=== PATIENT | male | born 1975 | race Caucasian/White ===

== ENCOUNTER → 2020-11-14 13:04 | Outpatient (BNVA) | payer OTHER, SELFPAY | PROVIDERS: PCP Pediatrics; Visit Provider Internal Medicine Cardiovascular Disease | DX: Z45.018 Encounter for adjustment and management of other part of cardiac pacemaker (principal); Z01.810 Encounter for preprocedural cardiovascular examination | CPT/HCPCS: 93005; 99202 ==

== ENCOUNTER → 2021-01-11 09:09 | Outpatient (REF) | payer OTHER, SELFPAY ==
--- NOTE | 2021-01-11 09:20 | CA_ITS ---
Transthoracic Echocardiogram Patient (Last, First, Middle): William Carlson, Gender: Male Date of : 1975 Age: 45 Procedure Date: 01/11/2021 Procedure Type: Transthoracic Echocardiogram Location: OP Height: 162.56 cm Weight: 150. kg BSA: 2.42 m2 Heart Rate: bpm BP: 128 / 60 mmHg Bleach Mixer: Referring MD: Odell Fernandez MD Symptoms: Z01.810 - Encounter for preprocedural cardiovascular examination Study Quality: Technically Difficult ECG Rhythm: Sinus Conclusions: - 1. Normal LV systolic function with mild LVH with pseudonormal filling pattern 2. Cardiac valves not well visualize with within normal limits cardiac Dopplers 3. Moderately elevated right ventricular systolic pressure 4. No gross pericardial effusion Findings Procedure Information Contrast agent, definity, is being given per protocol without apparent complications. Left Ventricle The left ventricle was not well visualized. There is mildly increased left ventricular wall thickness. The visually estimated ejection fraction is between 60-65%. Spectral Doppler is indicative of a pseudonormal filling pattern. E/E prime ratio is between 8 and 15 consistent with indeterminate filling pressures. Right Ventricle The right ventricle was not well visualized. There is a pacemaker wire seen in the right ventricle. However on contrast images the RV appears to be enlarged Atria The left atrium was not well visualized. Interatrial shunt cannot be excluded. The right atrium was not well visualized. Aortic Valve The aortic valve was not well visualized. There is no aortic valve stenosis. There is no aortic valve regurgitation. Mitral Valve The mitral valve was not well visualized. There is trace mitral valve regurgitation. There is no mitral valve stenosis. Pulmonic Valve The pulmonic valve was not well visualized. Tricuspid Valve The tricuspid valve was not well visualized. There is mild tricuspid valve regurgitation. Mildly elevated right atrial pressure. Moderate pulmonary hypertension is present. Great Vessels The aorta was not well visualized. The pulmonary artery was not well visualized. Venous The inferior vena cava is mildly dilated and collapses less than 50% with inspiration. Pericardium/Pleural There is no evidence of pericardial effusion. Prior Study Comparison No previous study in the last 5 years for comparison Measurements 2D Linear Measurements IVSd: 1.20 0.6-0.9/0.6-1.0 cm LVIDd: 4.12 3.9-5.3/4.2-5.9 cm LVIDd Index: 1.70 2.4-3.2/2.2-3.1 cm/m2 LVIDs: 2.30 2.0-3.6 cm LVPWd: 1.22 0.7-1.1 cm Ao Root: 3.20 2.1-3.5 cm LA Diam: 4.10 2.7-3.8/3.0-4.0 cm LAIDs Index: 1.69 1.5-2.3 cm/m2 LV Mass: 274.89 67-162/88-224 g LV Mass Index: 113.59 43-95/49-115 g/m2 LVOT Diam: 2.30 3.0+(-)1.3 cm Mitral Valve MV Pk E: 1.01 MV PK A: 0.81 MV Decel Time: 158.00 E/A: 1.30 E'Lateral: 7.06 E'Medial: 6.38 E/E' Med: 15.80 E/E' Lat: 14.30 PHT: 46.00 MVA PHT: 4.78 Decel Allen: 6.35 Aortic Valve AoV Pk Amari: 1.62 AoV Mn Amari: 1.01 AoV VTI: 0.28 AoV Pk Grad: 10.00 Aov Mn Grad: 5.00 ARIA Cont.VTI: 3.30 LVOT LVOT Pk Amari: 1.07 LVOT Mn Amari: 0.74 LVOT VTI: 0.22 LVOT Pk Grad: 5.00 LVOT Mn Grad: 3.00 LVOT Diam: 2.30 LVOT Area: 4.15 Diastolic Function MV Pk E: 1.01 MV Pk A: 0.81 E/A: 1.30 E'Medial: 6.38 E/E' Med: 15.80 E' Laterial: 7.06 E/E' Lat: 14.30 Tricuspid Valve TR Pk Amari: 3.15 TR Pk Grad: 40.00 RA Press: 8.00 RVSP: 48.00 Great Vessels Aorta Ao Root-2D: 3.20 2.0-3.7 cm Pulmonary Valve PV Pk Amari: 1.29 Peak PV Grad: 7.00 Updated in Other Vendor System with Status of Final Gildardo Coreas MD electronically signed on 01/11/2021 4:06:03 PM with status of Final
== END ==
LOC: HO.CARD 09:09
PROVIDERS: Visit Provider Internal Medicine Cardiovascular Disease
DX: Z01.810 Encounter for preprocedural cardiovascular examination (principal)
CPT/HCPCS: 93306; Q9957

== ENCOUNTER → 2021-03-20 12:50 | Outpatient (BNVA) | payer OTHER, SELFPAY | PROVIDERS: PCP Pediatrics; Referring Provider Pediatrics; Visit Provider Nurse Practitioner Family | DX: I25.10 Atherosclerotic heart disease of native coronary artery without angina pectoris (principal); G47.33 Obstructive sleep apnea (adult) (pediatric); I95.9 Hypotension, unspecified; Z45.018 Encounter for adjustment and management of other part of cardiac pacemaker | CPT/HCPCS: 99212 ==

== ENCOUNTER → 2021-05-08 13:31 | Outpatient (BNVA) | payer OTHER, SELFPAY | PROVIDERS: PCP Pediatrics; Referring Provider Pediatrics; Visit Provider Nurse Practitioner Family | DX: Z45.018 Encounter for adjustment and management of other part of cardiac pacemaker (principal); I95.9 Hypotension, unspecified; I25.10 Atherosclerotic heart disease of native coronary artery without angina pectoris; G47.33 Obstructive sleep apnea (adult) (pediatric) | CPT/HCPCS: 99212 ==

== ENCOUNTER → 2021-07-01 14:51 | Outpatient (BNVA) | payer OTHER, SELFPAY | PROVIDERS: PCP Pediatrics; Referring Provider Pediatrics; Visit Provider Nurse Practitioner Family ==